=== PATIENT | female | born 1980 ===

== ENCOUNTER 2016-10-04 15:55 | Inpatient (IN) | payer OTHER ==
[~2016-10-04] VITALS: Ht 170.2 cm; Wt 72.6 kg
--- NOTE | 2016-10-04 16:07 | NUR ---
PER PT "PROBLEM WITH ALCOHOL" LAST DRINK 3 PM.ONLY DRANK A LITTLE THEN, TREMULOUS. DENIES DRUG USE. PER PT HAVE A PLACE TO GO BUT CANT GO INPAIRED. WHEN ASKED PT JUST CRIES AND STATES I DO NOT BELONG IN THIS WORLD.
--- NOTE | 2016-10-04 16:12 | NUR ---
PT VERY EMOTIONAL, FEARFUL PULLS AWAY WITH PROCEDURES, CRYING TREMULOUS,. CHARGE YUSEF AWARE.
[2016-10-04 16:38] LABS: ABSOLUTE BASOPHIL COUNT 0 /CUMM (0.0-0.2); ABSOLUTE EOSINOPHIL COUNT 0 /CUMM (0.0-0.7); ABSOLUTE GRANULOCYTE CT 3.4 /CUMM (1.4-6.5); ABSOLUTE LYMPH COUNT 0.8 /CUMM (1.2-3.4); ABSOLUTE MONOCYTE COUNT 0.1 /CUMM (0.10-0.60); BASOPHIL % 0.9 % (0.0-2.0); EOSINOPHIL % 0.8 % (0-5); HEMATOCRIT 44.5 % (37-47); MEAN CORPUSCULAR HGB 30.2 PG (27.0-31.0); MEAN CORPUSCULAR HGB CONC 34.2 G/DL (33.0-37.0); MEAN CORPUSCULAR VOLUME 88.2 FL (81.0-99.0); MEAN PLATELET VOLUME 9.9 FL (7.4-10.4); PLATELET COUNT 128 /CUMM (130-400); RBC DISTRIBUTION WIDTH 14.7 % (11.5-14.5); RED BLOOD CELL CT 5.04 /CUMM (4.20-5.40); WHITE BLOOD CELL COUNT 4.4 /CUMM (4.8-10.8)
--- NOTE | 2016-10-04 16:42 | NUR ---
LABS DRAWN AND SENT BY THIS [facility] BLUE, SST X2, LAV X 2, PINK, ARIAS
--- NOTE | 2016-10-04 16:58 | NUR ---
SECURITY IS TAKING A SMALL POCKET 2IN KNIFE AND A SMALL 2IN SCREW CATHETER FINISHER AND INSPECTOR TO LOCK UP.
--- NOTE | 2016-10-04 17:12 | ED PSYCHIATRIC COMPLAINT ---
History of Present Illness General Chief Complaint: ETOH/Drug Related Complaint Stated Complaint: PT NEEDS DETOX FROM ALCOHOL Source: patient Exam Limitations: no limitations Allergies Coded Allergies: No Known Allergies (10/04/16) Triage Note: PER PT "PROBLEM WITH ALCOHOL" LAST DRINK 3 PM.ONLY DRANK A LITTLE THEN, TREMULOUS. DENIES DRUG USE. PER PT HAVE A PLACE TO GO BUT CANT GO INPAIRED. WHEN ASKED PT JUST CRIES AND STATES I DO NOT BELONG IN THIS WORLD. Triage Nurses Notes Reviewed? yes : No Patient currently breastfeeds: No HPI: 36-year-old female here with complaints of alcohol withdrawal and depression. She has history of drinking for many years and polysubstance abuse. She has stopped drinking as of this afternoon and only drank a small amount today, usually drinks 2 pints of vodka per day. She has history of withdrawal symptoms but no withdrawal seizures or DTs however she states the last few time she tried to stop drinking her withdrawal symptoms became worse and worse. She has no nausea no vomiting, she complains of depression and anxiety although she is not suicidal at this time. She is anxious and shaking, there is no confusion. Last detox was approximately 6-8 months ago and she has been drinking heavily since, daily. (MICHAEL FLETCHER) Vital Signs & Intake/Output Vital Signs & Intake/Output Vital Signs Date Time Temp Pulse Resp B/P Pulse O2 O2 Flow FiO2 Ox Delivery Rate 10/04 1805 Room Air 10/04 1748 124 18 142/90 98 Room Air 10/04 1722 99.0 128 28 162/100 10/04 1608 99.0 130 28 162/100 96 Room Air Past History Travel History Traveled to [place] past 21 day No Medical History Any Pertinent Medical History? see below for history Neurological: NONE EENT: NONE Cardiovascular: NONE Respiratory: NONE Gastrointestinal: NONE Hepatic: NONE Renal: NONE Musculoskeletal: NONE Psychiatric: alcohol dependence, anxiety, depression, substance abuse, HISTORY OF SUICIDALITY Endocrine: NONE Surgical History Surgical History: none Psychosocial History What is your primary language Yoruba Tobacco Use: Current Daily Use Daily Tobacco Use Amount/Type: => 5 Cigarettes daily ETOH Use: alcoholic Family History Hx Contributory? No (MICHAEL FLETCHER) Review of Systems Review of Systems Constitutional: Reports: see HPI. EENTM: Reports: no symptoms. Respiratory: Reports: no symptoms. Cardiovascular: Reports: no symptoms. GI: Reports: no symptoms. Genitourinary: Reports: no symptoms. Musculoskeletal: Reports: no symptoms. Skin: Reports: no symptoms. Neurological/Psychological: Reports: see HPI. Hematologic/Endocrine: Reports: no symptoms. Immunologic/Allergic: Reports: no symptoms. All Other Systems: Reviewed and Negative (MICHAEL FLETCHER) Physical Exam Physical Exam General Appearance: well developed/nourished, anxious, moderate distress ( TREMULOUS) Neurological/Psychiatric: no motor/sensory deficits, awake, alert, anxious Comments: HEENT: Normal EENT exam, extraocular motion intact, no nystagmus. Pupils equally round and reactive to light. Nose is atraumatic. External auditory canal and Tympanic membranes clear. Pharynx normal. No swelling or edema. Neck: Supple, no lymphadenopathy, normal range of motion without pain or tenderness Back: Nontender, no CVA tenderness. Full range of motion Cardiovascular: Tachycardic with a regular rhythms no murmurs, normal JVP Respiratory: Chest nontender. No respiratory distress. Breath sounds clear to auscultation bilaterally Abdomen: Soft, nontender nondistended, no appreciable organomegaly. Normal bowel sounds. No ascites Extremity: No edema, no calf tenderness to palpation, normal and equal pulses. Neuro: Alert oriented x3, motor sensory normal, cranial nerves II through XII grossly intact. Skin: No appreciable rash on exposed skin, skin is warm and dry. Psych: Anxious, tremulous, memory and judgment is normal SAD PERSONS Done? patient not suicidal (MICHAEL FLETCHER) Progress Differential Diagnosis: dementia, drug intoxication, drug overdose, drug withdrawal, electrolyte abnormality, encephalitis, hypoglycemia, hypothyroidism, IC hem/mass/tumor, meningitis Initial ED EKG: SINUS TACHYCARDIA AT 150 BPM, NO SPECIFIC st OR t-WAVE CHANGES, POOR TRACING DUE TO ARTIFACT Rhythm Strip: sinus tachycardia Comments: Initial CIWA is 21. Treated with 2 mg of Ativan IV, 300 mg of gabapentin and 1 L of normal saline, we'll continue to monitor. Patient reevaluated multiple times, blood pressure and heart rate and symptomatology has improved significantly, will require admission due to possible withdrawal seizure impending DTs, patient requests admission for detox (MICHAEL FLETCHER) Plan of Care: Orders Procedure Date/time Status CIWA 10/04 1702 Active Telemetry/Seconds Inspector 10/04 1657 Active URINE DRUG SCREEN FOR ER ONLY 10/04 1637 Active URINALYSIS 10/04 1637 Active HUMAN BETA HCG SCREEN 10/04 161 Complete ETHANOL 10/04 161 Complete COMPREHENSIVE METABOLIC PANEL 10/04 161 Complete CBC WITHOUT DIFFERENTIAL 10/04 161 Complete EKG 10/04 161 Active Current Medications Sig/Aaron Start time Last Medication Dose Stop Time Status Admin Sodium Chloride 1,000 ML BOLUS ONE 10/04 1830 AC (Normal Saline 0.9%) 10/04 1929 Laboratory Tests 10/04/16 1618: Anion Gap 20 H, Estimated GFR > 60, BUN/Creatinine Ratio 11.4, Glucose 103 H, Calcium 9.5, Total Bilirubin 1.3, AST 934 H, ALT 428 H, Alkaline Phosphatase 185 H, Total Protein 8.4 H, Albumin 4.9, Globulin 3.5, Albumin/Globulin Ratio 1.4, Total Beta HCG NEGATIVE, CBC w Diff NO MAN DIFF REQ, RBC 5.04, MCV 88.2, MCH 30.2, RDW 14.7 H, MPV 9.9, Gran % 78.0 H, Lymphocytes % 18.0 L, Monocytes % 2.3, Eosinophils % 0.8, Basophils % 0.9, Absolute Granulocytes 3.4, Absolute Lymphocytes 0.8 L, Absolute Monocytes 0.1 L, Absolute Eosinophils 0, Absolute Basophils 0, PUBS MCHC 34.2, Serum Alcohol 135.0 Departure Departure Disposition: STILL A PATIENT Condition: Stable Clinical Impression Primary Impression: Alcohol withdrawal Qualifiers: Complication of substance-induced condition: uncomplicated Qualified Code: F10.230 - Alcohol dependence with withdrawal, uncomplicated Secondary Impressions: High anion gap metabolic acidosis, Transaminitis Departure Forms: Customer Survey General Discharge Information Admission Note Spoke With: CHRISTINE KIM MD Documentation of Exam: Documentation of any treatments & extenuating circumstances including Concerns Regarding Discharge (functional status, medication knowledge or non-compliance, living conditions, etc.) that warrant an admission rather than observation: Patient with significant signs of alcohol withdrawal, see what the 21, hypertensive tachycardic transaminitis, concern for alcohol withdrawal seizure or impending DTs. Requires admission, IV Ativan, IV Neurontin for withdrawal symptoms, IV fluids and elevated anion gap, possible psychiatric consultation (JENNIFER PARKER,) PA/WIRED SWEATBAND CUTTER Co-Sign Statement Statement: ED Attending supervision documentation- [] I saw and evaluated the patient. I have also reviewed all the pertinent lab results and diagnostic results. I agree with the findings and the plan of care as documented in the PA's/WIRED SWEATBAND CUTTER's documentation. [X] I have reviewed the ED Record and agree with the PA's/WIRED SWEATBAND CUTTER's documentation. [] Additions or exceptions (if any) to the PAs/WIRED SWEATBAND CUTTER's note and plan are summarized below: [] (JOSEP MOLINA,PHIL Andre)
[2016-10-04 17:22] VITALS: BP 162/100
--- NOTE | 2016-10-04 17:25 | NUR ---
PT BROUGHT TO ROOM 12. SECURITY IN TO WAND PT. PT CHANGED WITHOUT ASSIST INTO BLUE SCRUBS. IV PLACED. SEEN BY MICHAEL PARKER. PT VERY TREMULOUS AND ANXIOUS. PT SENSITIVE TO SOUNDS AND MOVEMENT IN ROOM, JUMPS AND WITHDRAWLS FROM UNEXPECTED SOUNDS OR TOUCH. AWAKE, ALERT AND STATES SHE IS ANXIOUS. PT ACTIVELY TALKING BUT CONVERSATION IS DISORGANIZED. PT HAVING DIFFICULTY ANSWERING QUESTIONS SUCCINCLTY OR SUFFICIENTLY. PT WITH HISTORY OF BIPOLAR AND STATES SHE STOPPED TAKING HER MEDS OVER A YEAR AGO BECAUSE SHE FEELS SHE IS MORE CREATIVE WHEN OFF HER MEDS. ADMITS TO ALCOHOL ABUSE AND STATES SHE HAS BEEN TO REHAB AND OR HOSPITALIZED FOR PSYCHIATRIC PROBLEMS MULTIPLE TIMES. STATES SHE HAS HALLUCINATIONS AT PRESENT.
--- NOTE | 2016-10-04 17:29 | NUR ---
PT MEDICATED WITH GABAPETIN AND ATIVAN IV.
--- NOTE | 2016-10-04 17:48 | NUR ---
PT RESTING QUIETLY. TREMORS GREATLY DIMINISHED. PT CONTINUES TO BE SENISTIVE TO UNEXPECTED NOISES, STARTLES EASILY
[2016-10-04 18:54] VITALS: BP 113/82
--- NOTE | 2016-10-04 18:55 | NUR ---
PT MUCH CALMER, NO LONGER CRYING, NOT STARTLING MUCH WHEN SHE ARRIVED. SPOKE WITH PT AND ASKED HER AGAIN WHY SHE CAME TO ED TODAY. UPON ARRIVAL PT WAS EMOTIONAL AND NOT EXPRESSING HERSELF WELL. PT VERBALIZED AGAIN THAT SHE CAME TO ED TO DETOX FROM ALCOHOL SO THAT SHE COULD BE MEDICALLY STABLE TO GO TO A REHAB CENTER.
--- NOTE | 2016-10-04 19:41 | NUR ---
ADMISION GIVEN TO PHILANTHROPY OFFICER PT IS A HOLD IN THE ED
--- NOTE | 2016-10-04 20:07 | NUR ---
DR KIM IN TO SEE PT. ADDITIONAL ATIVAN ORDERED FOR PT.
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
[2016-10-04 20:33] VITALS: BP 123/81
--- NOTE | 2016-10-04 20:33 | NUR ---
PT ASSISTED UP TO BATHROOM TO PROVIDE URINE SPECIMEN THEN GIVEN IV ATIVAN
--- NOTE | 2016-10-04 20:40 | NUR ---
DR REYES ORDERED MONITORING OF PT DUE TO RESTLESSNESS AND HALLUCINATIONS. MACHELLE MST IN TO SIT WITH PT
--- NOTE | 2016-10-04 21:10 | Admission Certification ---
Admission Certification Certification Statement - As attending physician, I certify that at the time of - admission, based on clinical presentation, severity of - symptoms, need for further diagnostic testing and - therapeutic interventions, and risk of adverse outcomes - without in-hospital treatment, in my clinical assessment, - this patient requires an acute hospital stay for a minimum - of two nights or longer. I have also considered psychsocial - factors such as support system, advanced age, financial - issues, cognitive issues, and failed out-patient treatments, - past re-admission history, safety of patient, and lack of - compliance as applicable. Specific rationale supporting this admission is: Alcohol withdrawal.
--- NOTE | 2016-10-04 21:25 | NUR ---
HOUSE STAFF IN WITH PT
--- NOTE | 2016-10-04 21:50 | NUR ---
PT WILL GO TO ROOM 204-2
--- NOTE | 2016-10-04 22:21 | NUR ---
IV CLOTTED OFF IN RIGHT HAND. IV REMOVED. NEW LINE PLACED IN LEFT HAND. BANANA BAG HUNG. SITTER AT BEDSIDE. PT AWAKE, ALERT, MINIMAL TREMORS. PARTICIPATING N DIVERSIONAL CONVERSATION. PT APPRECIATIVE OF CARE. REPORT CALLED TO TRUE ON SECOND FLOOR
[2016-10-04 22:22] VITALS: BP 130/90
--- NOTE | 2016-10-04 22:27 | NUR ---
TRANSPORT HERE FOR PT
--- NOTE | 2016-10-04 22:32 | NUR ---
VALUABLES BAG AND CLOTHING BAG AND BACKPACK RETURNED TO PT PRIOR TO TRANSFER TO SECOND FLOOR. PT VERIFIED ALL VALUABLES RETURNED TO HER INCLUIDNG ID, FOUR DOLLARS AND KEYS
--- NOTE | 2016-10-04 22:32 | NUR ---
PT TRANSPORTED TO FLOOR
[2016-10-04 22:47] VITALS: BP 142/80
--- NOTE | 2016-10-05 00:12 | NUR ---
PT ARRIVED TO FLOOR FROM ER VIA STRETCHER WITH DISTRIBUTION STAFF. PT ANXIOUS AND TREMULOUS. PT REPORTS EPISODES OF AH(HEARS PEOPLE CLIMBING STAIRS) AND VH(SEES DOGS), NOT AT THIS TIME. BANANA BAG IN PLACE, SITTER AT BEDSIDE, ATIVAN PO SCHEDULE DOSE GIVEN. WILL CONTINUE TO MONITOR
[2016-10-05 00:39] VITALS: BP 138/94
--- NOTE | 2016-10-05 06:46 | PN- Housestaff ---
GODFREY MOLINA,TRACY 10/05/16 0646: Subjective Follow-up For: Alcohol detox Complaints: anxiety Subjective: I followed up on this patient who got admitted overnight for alcohol detox. She is resting comfortably on the bed, and does not have any complaints. On questioning, she did say that she has anxiety, is still hallucinating (auditory and visual) sometimes, and has tremors. No suicidal or homicidal ideation at this time. Vitals stable. Review of Systems Constitutional: Reports: no symptoms. EENTM: Reports: no symptoms. Cardiovascular: Reports: no symptoms. Respiratory: Reports: no symptoms. Gastrointestinal: Reports: no symptoms. Genitourinary: Reports: no symptoms. Musculoskeletal: Reports: no symptoms. Skin: Reports: no symptoms. Neurological/Psychological: Reports: anxiety, tremors. Denies: headache. Hematologic/Endocrine: Reports: no symptoms. Objective Last 24 Hrs of Vital Signs/I&O Vital Signs Date Time Temp Pulse Resp B/P Pulse O2 O2 Flow FiO2 Ox Delivery Rate 10/05 1618 98.1 106 20 136/88 97 10/05 1200 98.0 92 20 126/67 10/05 0813 98.2 100 18 124/84 97 Room Air 10/05 0039 98.6 105 22 138/94 96 Room Air 10/04 2247 98.3 115 20 142/80 98 Room Air 10/04 2223 98.5 122 18 130/90 96 Room Air 10/04 2222 98.5 122 18 130/90 10/04 2033 98.8 120 18 123/81 10/04 1854 98.5 116 18 113/82 10/04 1854 98.5 116 18 113/82 98 Room Air 10/04 1805 Room Air 10/04 1748 124 18 142/90 98 Room Air 10/04 1722 99.0 128 28 162/100 Intake & Output 10/05 1600 10/05 0800 10/05 0000 Intake Total 1600 1000 2000 Output Total Balance 1600 1000 2000 Intake, IV 800 1000 2000 Intake, Oral 800 Patient 72.575 kg Weight Physical Exam General Appearance: Alert, Oriented X3, Cooperative, No Acute Distress, Anxious Other Physical Findings: Physical examnination: General: well nourished patient [not] in distress Head: Normocephalic, atraumatic Eyes: Pupils normal in size, regular, reacting to light and accommodation, EOM normal Ears: B/l normal on inspection Nose: Normal on inspection Throat/mouth: [Moist] mucosa Neck: Supple, full range of motion, no thyromegaly Heart: Regular rate, [regular] rhythm Lung: Normal breath sound bilaterally [Added sound not heard] Abd: Soft, non-tender, no distention appreciated Back: Normal range of motion Extremities: Normal knee exam bilaterally, [no] pedal edema, Distal neurovascular intact Neurologic: Alert, oriented x3, Cranial exam grossly intact, Speech is clear and coherent Skin: Warm and dry Psychiatric: Calm, cooperative, coherant, [no SI], [no HI] Current Medications: Current Medications Sig/Aaron Start time Last Medication Dose Route Stop Time Status Admin Cyanocobalamin/ 1 BAG ONCE ONE 10/04 2358 CAN Thiamine/Pyridoxine IV 10/05 0758 Dextrose/Water 1,000 ML Cyanocobalamin/ 1 BAG ONCE ONE 10/04 2014 DC 10/04 Thiamine/Pyridoxine IV 10/05 0414 2147 Sodium Chloride 1,000 ML Enoxaparin Sodium 0 .STK-MED ONE 10/049 DC SC Enoxaparin Sodium 40 MG DAILY 10/04 2109 DC 10/04 SC 2147 Folic Acid 1 MG DAILY 10/05 1000 AC 10/05 PO 0741 Gabapentin 0 .STK-MED ONE 10/04 171 DC PO Ibuprofen 600 MG Q6P PRN 10/04 211 AC PO Lorazepam 2 MG Q6 10/05 1200 DC PO Lorazepam 2 MG Q6 10/05 0700 AC 10/05 PO 1151 Lorazepam 2 MG Q6 10/04 2359 DC 10/04 PO 10/05 0001 2348 Lorazepam 0 Q1P PRN 10/04 2245 AC 10/05 IV 0640 Lorazepam 2 MG Q2P PRN 10/04 211 DC IV Lorazepam 1 MG Q2P PRN 10/04 211 DC IV Lorazepam 1 MG ONCE ONE 10/04 2014 DC 10/04 IV 10/04 2015 2020 Lorazepam 0 .STK-MED ONE 10/04 2009 DC .ROUTE Lorazepam 0 .STK-MED ONE 10/04 1711 DC .ROUTE Magnesium Chloride 64 MG DAILY 10/05 1000 DC 10/05 PO 10/05 1001 0741 Magnesium Oxide 400 MG BID 10/05 1532 DC PO Magnesium Sulfate 1 GM ONCE ONE 10/05 1600 AC Dextrose/Water 100 ML IV 10/05 1959 Multivitamins 1 TAB DAILY 10/04 2200 AC 10/05 PO 0741 Multivitamins 0 .STK-MED ONE 10/04 2130 DC PO Nicotine 7 MG DAILY PRN 10/05 0500 AC TOP Oxycodone HCl 10 MG Q6P PRN 10/04 2115 AC PO Patient Medication 1 ED ONE ONE 10/05 1330 DC Teaching ED 10/05 1331 Potassium Chloride 40 MEQ ONCE ONE 10/05 1545 DC PO 10/05 1546 Potassium Chloride 40 MEQ ONCE ONE 10/05 0100 DC 10/05 PO 10/05 0101 0235 Sodium Chloride 1,000 ML Q10H 10/04 2230 AC 10/05 IV 1543 Sodium Chloride 1,000 ML BOLUS ONE 10/04 1830 DC 10/04 IV 10/04 1929 1850 Sodium Chloride 1,000 ML BOLUS ONE 10/04 1700 DC 10/04 IV 10/04 1759 1722 Thiamine HCl 100 MG DAILY 10/05 1000 AC 10/05 PO 0741 Last 24 Hrs of Lab/Wild Results Last 24 Hrs of Labs/Mics: Laboratory Tests 10/05/16 0625: Anion Gap 13, Estimated GFR > 60, BUN/Creatinine Ratio 10.0, Phosphorus 3.1, Magnesium 1.4 L, Total Bilirubin 1.8 H, Direct Bilirubin 0.9 H, AST 669 H, ALT 298 H, Alkaline Phosphatase 130 H, Total Protein 6.4, Albumin 3.5, PT 11.0 , INR 1.05, CBC w Diff NO MAN DIFF REQ, RBC 4.18 L, MCV 89.1, MCH 30.8, RDW 15.2 H, MPV 10.6 H, Gran % 58.7, Lymphocytes % 34.6, Monocytes % 3.1, Eosinophils % 3.1, Basophils % 0.5, Absolute Granulocytes 1.7, Absolute Lymphocytes 1.0 L, Absolute Monocytes 0.1 L, Absolute Eosinophils 0.1, Absolute Basophils 0, PUBS MCHC 34.6, Hepatitis A IgM Ab NONREACTIVE, Hep Bs Antigen NONREACTIVE, Hep B Core IgM Ab Conf NONREACTIVE, Hepatitis C Antibody NONREACTIVE 10/04/16 2015: Urine Opiates Screen < 100.00, Methadone Screen < 40, Barbiturate Screen < 60, Ur Phencyclidine Scrn < 6.00, Amphetamines Screen 1366 H, U Benzodiazepines Scrn < 85, Urine Cocaine Screen < 50, Urine Cannabis Screen < 5.00, Urine Color YEL, Urine Clarity CLEAR, Urine pH 7.0, Ur Specific Sanders 1.020, Urine Protein 30 H, Urine Ketones 15 H, Urine Nitrite NEG, Urine Bilirubin NEG@ICTO, Urine Urobilinogen 2.0 H, Ur Leukocyte Esterase NEG, Ur Microscopic SEDIMENT EXAMINED , Urine RBC FEW H, Urine WBC RARE, Ur Epithelial Cells MANY H, Urine Mucus MANY H, Urine Hemoglobin TRACE-INTACT, Urine Glucose NEG Orders CIWA Score (last 24 hrs): 0-21 since admission Assessment/Plan Assessment: 36 yo F with pmh of alcohol abuse, alcohol withdrawal seizures, polysubstance abuse including marijuana, crack cocaine, cocaine, opiates, heroin, IVDA, anxiety, depression, suicidal ideation, presented to the ED requesting alcohol detoxification. She is currently being managed in the general medical floor for the following issues: #Alcohol detox Her CIWA score has been ranging from 0-21 since admission. The latest being 0. Patient does show some signs of alcohol withdrawal, including tremors, anxiety, hallucination. -Continue CIWA protocol -Taper Ativan according to protocol -Continue banana bag and multivitamin, folate, thiamine -Since the patient is hallucinating, continue patient safety monitor -Follow-up social work consult -Since the patient is not suicidal currently, does not require a psychiatric consult #Likely alcoholic hepatitis Liver enzymes are increased, ultrasound of the abdomen has shown fatty liver, and the patient had mild right upper quadrant pain on presentation. All these points to diagnosis of hepatitis, likely due to alcohol. Viral hepatitis panel is negative. -Tylenol level normal, U Tox positive for amphetamine, as expected -Monitor LFTs -Follow-up INR #Thrombocytopenia Patient's platelet is 128 at admission and 81 in the morning. Likely due to liver disease or some other reasons. Enoxaparin has been stopped, and also advised not to give any heparin products either. DVT prophylaxis is currently being done by Alps. -Monitor Platelets, and signs of any bleeding #Loose stools, now improved #Diet: Regular diet #DVT prophylaxis: Alps #CODE STATUS: Full code Problem List: 1. Alcohol withdrawal 2. Transaminitis 3. Thrombocytopenia Pain Ratin Pain Location: - Pain Goal: Remain pain free Pain Plan: prn Tomorrow's Labs & Rationales: CBC to follow platelets, patient has thrombus cytopenia BEP and magnesium level, as the patient has hypomagnesemia and hypokalemia MURALI GARCIA MD 10/05/16 1220: Attending MD Review Statement Attending Statement Attending MD Statement: examined this patient, discuss w/resident/PA/STATE PILOT, agreed w/resident/PA/STATE PILOT, reviewed EMR data (avail) Attending Assessment/Plan: CIWA scores remain stable. Patient is sleepy and comfortable and does not appear agitated. Will continue Ativan 2mg q6h PO, taper tomorrow to 1.5mg q6h with PRN Ativan and vitamin supplementation.
--- NOTE | 2016-10-05 06:59 | NUR ---
PT + , CIWA 19, PT MEDICATED PER CIWA PROTOCOL. MADE AWARE.
[2016-10-05 07:54] LABS: ABSOLUTE BASOPHIL COUNT 0 /CUMM (0.0-0.2); ABSOLUTE EOSINOPHIL COUNT 0.1 /CUMM (0.0-0.7); ABSOLUTE GRANULOCYTE CT 1.7 /CUMM (1.4-6.5); ABSOLUTE MONOCYTE COUNT 0.1 /CUMM (0.10-0.60); BASOPHIL % 0.5 % (0.0-2.0); EOSINOPHIL % 3.1 % (0-5); GRANULOCYTE % 58.7 % (42.2-75.2); MEAN CORPUSCULAR HGB 30.8 PG (27.0-31.0); MEAN CORPUSCULAR HGB CONC 34.6 G/DL (33.0-37.0); MEAN CORPUSCULAR VOLUME 89.1 FL (81.0-99.0); MEAN PLATELET VOLUME 10.6 FL (7.4-10.4); RBC DISTRIBUTION WIDTH 15.2 % (11.5-14.5); RED BLOOD CELL CT 4.18 /CUMM (4.20-5.40); WHITE BLOOD CELL COUNT 2.9 /CUMM (4.8-10.8)
[2016-10-05 08:13] VITALS: BP 124/84
[2016-10-05 08:47] LABS: HEMATOCRIT 37.3 % (37-47)
[2016-10-05 09:11] LABS: PLATELET COUNT 81 /CUMM (130-400)
--- NOTE | 2016-10-05 09:46 | NUR ---
NURSING NOTE: ABDOMINAL US DONE AT BEDSIDE PER MD ORDER.
--- NOTE | 2016-10-05 10:05 | ULTRASOUND REPORT ---
EXAMINATION: US ABDOMEN LIMITED CLINICAL INFORMATION: Abdominal pain. Transaminitis.. COMPARISON: None TECHNIQUE: Real-time imaging of the right upper quadrant abdominal viscera. FINDINGS: PANCREAS: The tail is obscured by right bowel gas. Is less portions are unremarkable. LIVER: The liver is mildly enlarged. There is diffusely increased echogenicity of the liver consistent with hepatic steatosis. No focal parenchymal lesion is demonstrated. There is no intrahepatic ductal dilatation. GALLBLADDER: Normal. The gallbladder is physiologically distended without evidence of stones, sludge, polyps, wall thickening or pericholecystic fluid. COMMON BILE DUCT: Normal in caliber measuring 0.4 cm in diameter. RIGHT KIDNEY: Normal. No hydronephrosis. No renal calculi or focal parenchymal lesions. The kidney measures 11.2 cm in maximum dimension. FREE FLUID: None. IMPRESSION: Mild hepatomegaly with diffusely increased echogenicity consistent with hepatic steatosis.
[2016-10-05 12:00] VITALS: BP 126/67
--- NOTE | 2016-10-05 15:06 | NUR ---
REferral received this am via electronic order desk clerk. This patient is a 36 year old female, admitted to the hospital yesterday for a voluntary detox. PAtient placed on the CIWA for observation, and has been both tremulous and has had some disorientation. She is on an ativan taper and has received 12mg in 24 hours. Addie has had had significant periods of sobriety along with relapses for many years. She reports being well connected in the recovery community in [place], and reports that she will have a bed at [facility] on 10/08/16. Call to [facility] confirms same. Case discussed with Dr. Boswell; ativan needs to be tapered. Will follow.
[2016-10-05 16:18] VITALS: BP 136/88
[2016-10-06] VITALS: BP 122/84
[2016-10-06 00:28] VITALS: BP 122/84
[2016-10-06 07:59] LABS: ABSOLUTE BASOPHIL COUNT 0 /CUMM (0.0-0.2); ABSOLUTE EOSINOPHIL COUNT 0.1 /CUMM (0.0-0.7); ABSOLUTE GRANULOCYTE CT 1.6 /CUMM (1.4-6.5); ABSOLUTE LYMPH COUNT 1.3 /CUMM (1.2-3.4); ABSOLUTE MONOCYTE COUNT 0.1 /CUMM (0.10-0.60); BASOPHIL % 0.8 % (0.0-2.0); EOSINOPHIL % 4.5 % (0-5); GRANULOCYTE % 49.6 % (42.2-75.2); HEMATOCRIT 39.1 % (37-47); MEAN CORPUSCULAR HGB 30.6 PG (27.0-31.0); MEAN CORPUSCULAR HGB CONC 34.2 G/DL (33.0-37.0); MEAN CORPUSCULAR VOLUME 89.5 FL (81.0-99.0); MEAN PLATELET VOLUME 11.9 FL (7.4-10.4); RBC DISTRIBUTION WIDTH 14.7 % (11.5-14.5); RED BLOOD CELL CT 4.37 /CUMM (4.20-5.40); WHITE BLOOD CELL COUNT 3.2 /CUMM (4.8-10.8)
[2016-10-06 08:32] VITALS: BP 130/81
[2016-10-06 09:07] LABS: PLATELET COUNT 80 /CUMM (130-400)
--- NOTE | 2016-10-06 09:59 | PN- Housestaff ---
MONSERIANNARAD SÁNCHEZ 10/06/16 0959: Subjective Follow-up For: Alcohol detox Subjective: seen and examined patient. feels wells. States she feels drowsy. Review of Systems Constitutional: Denies: chills, diaphoresis, fever, malaise, weakness, unexplained weight loss. Cardiovascular: Denies: chest pain, edema, orthopena, palpitations, peripheral edema, syncope. Respiratory: Denies: cough, hemoptysis, orthopnea, short of breath, sputum production, stridor, wheezing. Objective Last 24 Hrs of Vital Signs/I&O Vital Signs Date Time Temp Pulse Resp B/P Pulse O2 O2 Flow FiO2 Ox Delivery Rate 10/06 0832 98.5 89 20 130/81 98 Room Air 10/06 0028 98.1 96 20 122/84 95 10/06 0000 98.1 96 20 122/84 10/05 1618 98.1 106 20 136/88 97 10/05 1200 98.0 92 20 126/67 Intake & Output 10/06 1600 10/06 0800 10/06 0000 Intake Total 1100 1100 Output Total Balance 1100 1100 Intake, IV 1000 500 Intake, Oral 100 600 Physical Exam General Appearance: Alert, Oriented X3, Cooperative, No Acute Distress Cardiovascular: Regular Rate, Normal S1, Normal S2 Abdomen: Normal Bowel Sounds, Soft, No Tenderness Current Medications: Current Medications Sig/Aaron Start time Last Medication Dose Route Stop Time Status Admin Folic Acid 1 MG DAILY 10/05 1000 AC 10/06 PO 0915 Ibuprofen 600 MG Q6P PRN 10/04 2115 AC PO Lorazepam 1.5 MG Q6 10/06 1200 AC PO Lorazepam 2 MG Q6 10/05 0700 DC 10/06 PO 0550 Lorazepam 0 Q1P PRN 10/04 2245 AC 10/05 IV 0640 Magnesium Oxide 400 MG BID 10/05 1532 DC PO Magnesium Sulfate 1 GM ONCE ONE 10/05 1600 DC 10/05 Dextrose/Water 100 ML IV 10/05 1959 1715 Multivitamins 1 TAB DAILY 10/04 2200 AC 10/06 PO 0915 Nicotine 7 MG DAILY PRN 10/05 0500 TOP Oxycodone HCl 10 MG Q6P PRN 10/04 2115 PO Patient Medication 1 ED ONE ONE 10/05 1330 DC Teaching ED 10/05 1331 Potassium Chloride 40 MEQ ONCE ONE 10/05 1545 DC 10/05 PO 10/05 1546 1715 Sodium Chloride 1,000 ML Q10H 10/04 2230 DC 10/06 IV 0550 Thiamine HCl 100 MG DAILY 10/05 1000 AC 10/06 PO 0915 Last 24 Hrs of Lab/Wild Results Last 24 Hrs of Labs/Mics: Laboratory Tests 10/06/16 0617: Anion Gap 12, Estimated GFR > 60, BUN/Creatinine Ratio 8.3, Magnesium 2.0, CBC w Diff NO MAN DIFF REQ, RBC 4.37, MCV 89.5, MCH 30.6, RDW 14.7 H, MPV 11.9 H, Gran % 49.6, Lymphocytes % 40.5, Monocytes % 4.6, Eosinophils % 4.5, Basophils % 0.8, Absolute Granulocytes 1.6, Absolute Lymphocytes 1.3, Absolute Monocytes 0.1 L, Absolute Eosinophils 0.1, Absolute Basophils 0, PUBS MCHC 34.2 Assessment/Plan Assessment: 36 yo F with pmh of alcohol abuse, alcohol withdrawal seizures, polysubstance abuse including marijuana, crack cocaine, cocaine, opiates, heroin, IVDA, anxiety, depression, suicidal ideation, presented to the ED requesting alcohol detoxification. She is currently being managed in the general medical floor for the following issues: Plan: #Alcohol detox CIWA scores 4,4,4 Patient does show some signs of alcohol withdrawal, including tremors, anxiety, hallucination. -Continue CIWA protocol - Ativan decreased to 1.5 q6 -Continue banana bag and multivitamin, folate, thiamine -continue patient safety monitor -Follow-up social work consult #Transaminitis Likely alcoholic hepatitis, trending ultrasound of the abdomen has shown fatty liver. Viral hepatitis panel is negative. -Tylenol level normal, U Tox positive for amphetamine. -will continue to Monitor LFTs #Thrombocytopenia plt 80 today in the morning. Likely due to liver disease or some other reasons. Enoxaparin has been stopped, Monitor Platelets #Diet: Regular diet #DVT prophylaxis: Alps #CODE STATUS: Full code Problem List: 1. Alcohol withdrawal 2. Transaminitis 3. Thrombocytopenia Pain Ratin Pain Location: na Pain Goal: Pain 4 or less Pain Plan: current regimen Tomorrow's Labs & Rationales: low pt=cbc, transamintis=bep/lft MURALI GARCIA MD 10/06/16 1436: Attending MD Review Statement Attending Statement Attending MD Statement: examined this patient, discuss w/resident/PA/LINUX VMWARE ADMINISTRATOR, agreed w/resident/PA/LINUX VMWARE ADMINISTRATOR, reviewed EMR data (avail) Attending Assessment/Plan: CIWA scores remain stable. Patient is sleepy and comfortable and does not appear agitated. Will continue Ativan 1.5mg q6h, tomorrow 1mg q8h with PRN Ativan and vitamin supplementation
[2016-10-06 15:50] VITALS: BP 122/90
[2016-10-07 00:01] VITALS: BP 120/92
[2016-10-07 08:22] LABS: ABSOLUTE BASOPHIL COUNT 0 /CUMM (0.0-0.2); ABSOLUTE EOSINOPHIL COUNT 0.2 /CUMM (0.0-0.7); ABSOLUTE GRANULOCYTE CT 1.7 /CUMM (1.4-6.5); ABSOLUTE LYMPH COUNT 1.3 /CUMM (1.2-3.4); ABSOLUTE MONOCYTE COUNT 0.2 /CUMM (0.10-0.60); GRANULOCYTE % 48.7 % (42.2-75.2); MEAN CORPUSCULAR HGB 30.6 PG (27.0-31.0); MEAN CORPUSCULAR VOLUME 90.2 FL (81.0-99.0); MEAN PLATELET VOLUME 11.4 FL (7.4-10.4); RBC DISTRIBUTION WIDTH 15.1 % (11.5-14.5); RED BLOOD CELL CT 4.44 /CUMM (4.20-5.40); WHITE BLOOD CELL COUNT 3.6 /CUMM (4.8-10.8)
[2016-10-07 08:30] VITALS: BP 103/80
--- NOTE | 2016-10-07 09:17 | PN- Housestaff ---
DUSTY MOLINA,KAYCE 10/07/16 0917: Subjective Follow-up For: Alcohol detox Subjective: Patient appears stable today. No overnight events noted. She is resting comfortably in bed with no complaints. She follows up with therapist and primary care physician. Suggested if she requires follow-up to see a psychiatrist. Patient reported that she doesn't need any at this time. Denied suicidal or homicidal ideations. Review of Systems Constitutional: Reports: see HPI. Objective Last 24 Hrs of Vital Signs/I&O Vital Signs Date Time Temp Pulse Resp B/P Pulse O2 O2 Flow FiO2 Ox Delivery Rate 10/07 829 98.5 75 20 103/80 97 Room Air 10/07 0001 98.2 86 20 120/92 96 10/06 1550 98.0 84 18 122/90 97 Intake & Output 10/07 1600 10/07 0800 10/07 0000 Intake Total 360 360 360 Output Total Balance 360 360 360 Intake, IV 10 Intake, Oral 350 360 360 Physical Exam General Appearance: Alert, Oriented X3, Cooperative, No Acute Distress Skin: No Rashes Cardiovascular: Regular Rate, Normal S1, Normal S2, No Murmurs Lungs: Clear to Auscultation Abdomen: Normal Bowel Sounds, Soft, No Tenderness Neurological: Normal Speech Extremities: No Clubbing, No Cyanosis, No Edema Current Medications: Current Medications Sig/Aaron Start time Last Medication Dose Route Stop Time Status Admin Folic Acid 1 MG DAILY 10/05 1000 AC 10/07 PO 1015 Ibuprofen 600 MG Q6P PRN 10/04 2114 AC PO Lorazepam 1 MG BID 10/07 2199 AC PO Lorazepam 1.5 MG Q6 10/06 1200 DC 10/07 PO 0542 Lorazepam 0 Q1P PRN 10/04 2245 AC 10/05 IV 0640 Multivitamins 1 TAB DAILY 10/04 2199 AC 10/07 PO 1015 Nicotine 7 MG DAILY PRN 10/05 0500 AC TOP Oxycodone HCl 10 MG Q6P PRN 10/04 211 AC PO Thiamine HCl 100 MG DAILY 10/05 1000 AC 10/07 PO 1016 Last 24 Hrs of Lab/Wild Results Last 24 Hrs of Labs/Mics: Laboratory Tests 10/07/16 0630: Anion Gap 15, Estimated GFR > 60, BUN/Creatinine Ratio 5.0 L, Total Bilirubin 2.3 H, Direct Bilirubin 2.0 H, AST 331 H, ALT 270 H, Alkaline Phosphatase 152 H, Total Protein 6.3, Albumin 3.5, CBC w Diff NO MAN DIFF REQ, RBC 4.44, MCV 90.2, MCH 30.6, RDW 15.1 H, MPV 11.4 H, Gran % 48.7, Lymphocytes % 38.0, Monocytes % 6.3, Eosinophils % 6.0 H, Basophils % 1.0, Absolute Granulocytes 1.7, Absolute Lymphocytes 1.3, Absolute Monocytes 0.2, Absolute Eosinophils 0.2, Absolute Basophils 0, PUBS MCHC 34.0 Assessment/Plan Assessment: 36 yo F with pmh of alcohol abuse, alcohol withdrawal seizures, polysubstance abuse including marijuana, crack cocaine, cocaine, opiates, heroin, IVDA, anxiety, depression, suicidal ideation, presented to the ED requesting alcohol detoxification. She is currently being managed in the general medical floor for the following issues: Plan: #Alcohol detox CIWA scores within normal range Patient does show some signs of alcohol withdrawal, including tremors, anxiety, hallucination. -Continue CIWA protocol - Ativan decreased 1 mg every 12 -Continue banana bag and multivitamin, folate, thiamine -continue patient safety monitor -Follow-up social work consult #Transaminitis Likely alcoholic hepatitis, trending ultrasound of the abdomen has shown fatty liver. Viral hepatitis panel is negative. -Tylenol level normal, U Tox positive for amphetamine. -Total bilirubin has increased from yesterday. We'll continue to monitor. Patient remains a symptomatic. #Thrombocytopenia plt 86 today in the morning. Likely due to liver disease or some other reasons. Not on antiplatelets, no evidence of active bleeding Monitor Platelets #Diet: Regular diet #DVT prophylaxis: Alps #CODE STATUS: Full code Problem List: 1. Alcohol withdrawal 2. Transaminitis 3. Thrombocytopenia Pain Ratin Pain Location: Extremities Pain Goal: Remain pain free Pain Plan: As mentioned Tomorrow's Labs & Rationales: Will need to monitor LFTs MURALI GARCIA MD 10/07/16 8651: Attending MD Review Statement Attending Statement Attending Statement: examined this patient, discuss w/resident/PA/SENIOR SUPPORT ENGINEER, agreed w/resident/PA/SENIOR SUPPORT ENGINEER, reviewed EMR data (avail) Attending Assessment/Plan: CIWA scores remain stable. Patient is sleepy and comfortable and does not appear agitated. Will continue Ativan taper
[2016-10-07 09:42] LABS: PLATELET COUNT 86 /CUMM (130-400)
[2016-10-07 15:47] VITALS: BP 100/76
[2016-10-07 16:00] VITALS: BP 100/76
[2016-10-07 18:00] VITALS: BP 100/70
[2016-10-07 23:59] VITALS: BP 124/86
--- NOTE | 2016-10-08 06:07 | PN- Housestaff ---
Subjective Follow-up For: Alcohol detox Complaints: no complaints Subjective: I followed up and examined the patient today. See is resting comfortably in her bed, is not in any acute distress, and does not have any complaints. She admits to feeling better than ever, and denies any nausea, tremors, anxiety, palpitations, "shakiness". She mentioned that she is planning to be discharged to a short-term rehabilitation facility with an IOP program. CIWA in 24 hrs 0-3 max. Toatl Ativan required: 1mg Currently on: 1mg BID No PRN Ativan needed in past 24 hrs. Review of Systems Constitutional: Reports: no symptoms. EENTM: Reports: no symptoms. Cardiovascular: Reports: no symptoms. Respiratory: Reports: no symptoms. Gastrointestinal: Reports: no symptoms. Genitourinary: Reports: no symptoms. Musculoskeletal: Reports: no symptoms. Skin: Reports: no symptoms. Neurological/Psychological: Reports: no symptoms. Hematologic/Endocrine: Reports: no symptoms. Objective Last 24 Hrs of Vital Signs/I&O Vital Signs Date Time Temp Pulse Resp B/P Pulse O2 O2 Flow FiO2 Ox Delivery Rate 10/07 2359 98.1 75 18 124/86 97 Room Air 10/07 1800 98.8 90 20 100/70 10/07 1600 98.9 96 18 100/76 10/07 1547 98.9 96 18 100/76 96 10/07 0830 98.5 75 20 103/80 97 Room Air Intake & Output 10/08 0800 10/08 0000 10/07 1600 Intake Total 600 360 Output Total Balance 600 360 Intake, IV 10 Intake, Oral 600 350 Physical Exam General Appearance: Alert, Oriented X3, Cooperative, No Acute Distress Other Physical Findings: Physical examnination: General: well nourished patient not in distress Head: Normocephalic, atraumatic Eyes: Pupils normal in size, regular, reacting to light and accommodation, EOM normal Ears: B/l normal on inspection Nose: Normal on inspection Throat/mouth: Moist mucosa Neck: Supple, full range of motion, no thyromegaly Heart: Regular rate, regular rhythm Lung: Normal breath sound bilaterally Added sound not heard Abd: Soft, non-tender, no distention appreciated Back: Normal range of motion Extremities: Normal knee exam bilaterally, no pedal edema, Distal neurovascular intact Neurologic: Alert, oriented x3, Cranial exam grossly intact, Speech is clear and coherent Skin: Warm and dry Psychiatric: Calm, cooperative, coherant, no anxiety, no SI Current Medications: Current Medications Sig/Aaron Start time Last Medication Dose Route Stop Time Status Admin Calcium Carbonate 500 MG ONCE ONE 10/08 0400 DC 10/08 PO 10/08 0401 0426 Folic Acid 1 MG DAILY 10/05 1000 AC 10/08 PO 0859 Ibuprofen 600 MG Q6P PRN 10/04 2115 AC PO Lorazepam 1 MG DAILY 10/08 1000 AC 10/08 PO 0859 Lorazepam 1 MG BID 10/07 2199 DC 10/07 PO 2143 Lorazepam 1.5 MG Q6 10/06 1200 DC 10/07 PO 0542 Lorazepam 0 Q1P PRN 10/04 2245 AC 10/05 IV 0640 Multivitamins 1 TAB DAILY 10/04 2199 AC 10/08 PO 0859 Nicotine 7 MG DAILY PRN 10/05 0500 AC TOP Oxycodone HCl 10 MG Q6P PRN 10/04 2115 AC PO Thiamine HCl 100 MG DAILY 10/05 1000 AC 10/08 PO 0859 Last 24 Hrs of Lab/Wild Results Last 24 Hrs of Labs/Mics: Laboratory Tests 10/08/16 0637: Total Bilirubin 1.6 H, Direct Bilirubin 1.1 H, AST 178 H, ALT 202 H, Alkaline Phosphatase 134 H, Total Protein 6.4, Albumin 3.5 Assessment/Plan Assessment: 36 yo F with pmh of alcohol abuse, alcohol withdrawal seizures, polysubstance abuse including marijuana, crack cocaine, cocaine, opiates, heroin, IVDA, anxiety, depression, suicidal ideation, presented to the ED requesting alcohol detoxification. She is currently being managed in the general medical floor for the following issues: Plan: #Alcohol detox, not in withdrawal anymore CIWA scores within normal range Patient does show some signs of alcohol withdrawal, including tremors, anxiety, hallucination. -Continue CIWA protocol, last 24hr CIWA scaore: 0-3; required total Ativan 1mg in past 24 hrs, no PRN Ativan required -Ativan decreased 1 mg every 24 hrs -Continue banana bag and multivitamin, folate, thiamine -continue patient safety monitor -Follow-up social work consult. UPDATE: She has a placement at short-term rehabilitation facility, with follow-up appointment at the IOP set up already. She is not in withdrawal anymore, CIWA score is 0, and can be safely discharged to a short-term rehabilitation facility with a plan for follow-up which she agrees. #Transaminitis, improving Likely alcoholic hepatitis, trending, bilirubin and liver enzymes decreased slightly from yesterday. But it needs further follow-up even if the patient is discharged today. Patient has been explained about the condition and agrees to plan to follow-up. ultrasound of the abdomen has shown fatty liver. Viral hepatitis panel is negative. -Tylenol level normal, U Tox positive for amphetamine. -Total bilirubin has increased from yesterday. We'll continue to monitor. Patient remains a symptomatic. #Thrombocytopenia plt 86 today in the morning. Likely due to liver disease or some other reasons. Not on antiplatelets, no evidence of active bleeding PCP needs to follow-up with the reason of thrombocytopenia. The patient has been explained about her condition. #Diet: Regular diet #DVT prophylaxis: Alps #CODE STATUS: Full code Problem List: 1. Alcohol withdrawal 2. Transaminitis 3. Thrombocytopenia Pain Ratin Pain Location: - Pain Goal: Pain 4 or less Pain Plan: prn Tomorrow's Labs & Rationales: none, as the patient is being discharged today.
[2016-10-08 08:31] VITALS: BP 118/88
--- NOTE | 2016-10-08 08:32 | Patient Discharge Instructions ---
Discharge Instructions General Discharge Information You were seen/treated for: Alcohol detoxification Special Instructions: Please visit the IOP as planned after the discharge, ideally within seven days. Please visit your PCP within ten days of your sidcharge. You need to follow up on your liver function as well, it is still no within normal range. Please return to emergency department if symptoms worsen. Diet Continue normal diet: Yes Recommended Diet: Heart Healthy Activity Full Activity/No Limits: Yes Acute Coronary Syndrome Inclusion Criteria At DC or during hospital stay patient has or had the following: ACS DIAGNOSIS No Discharge Core Measures Meds if any: Prescribed or Continued at Discharge Meds if any: NOT Prescribed or Continued at Discharge Congestive Heart Failure Inclusion Criteria At DC or during hospital stay patient has or had the following: CHF DIAGNOSIS No Discharge Core Measures Meds if any: Prescribed or Continued at Discharge Meds if any: NOT Prescribed or Continued at Discharge Cerebrovascular accident Inclusion Criteria At DC or during hospital stay patient has or had the following: CVA/TIA Diagnosis No Discharge Core Measures Meds if any: Prescribed or Continued at Discharge Meds if any: NOT Prescribed or Continued at Discharge Venous thromboembolism Inclusion Criteria VTE Diagnosis No VTE Type NONE VTE Confirmed by (Test) NONE Discharge Core Measures - Per Current guidelines, there needs to be overlap - treatment for the first 5 days of Warfarin therapy. - If discharged on Warfarin prior to 5 days of - overlap therapy, the patient will need to be - assessed for post discharge needs including - *Post discharge parental anticoagulation - *Warfarin and/or parental anticoagulation education - *Follow up date to check INR post discharge At least 5 days overlap therapy as Inpatient No Meds if any: Prescribed or Continued at Discharge Note: Overlap Therapy is Warfarin and Anticoagulant Meds if any: NOT Prescribed or Continued at Discharge
[2016-10-08] MEDS ORDERED: ONE DAILY MULT1 EAC2 PO (08:58)
[2016-10-08] MEDS ORDERED: FOLIC ACID1 M1 PO (08:58)
[2016-10-08] MEDS ORDERED: VITAMIN B-1100 MG PO (08:58)
--- NOTE | 2016-10-08 15:18 | NUR ---
Late Entry: Aware of patients discharge this morning. Addie was picked up by a sober friend and transported to [facility] in [place], [place] Addie lives in [place], and has been receiving counselling from the parent organization of [facility].
--- NOTE | 2016-11-02 18:01 | Discharge Summary ---
Visit Information Visit Dates Admission Date: 10/04/16 Discharge Date: 10/08/16 Hospital Course Course Attending Physician: MURALI GARCIA MD Primary Care Physician: HOMERO RAYO PA-C Hospital Course: Ms Meyer is a 36-year-old female who presented to the emergency department requesting alcohol detoxification voluntarily. She has a long-standing history of alcohol abuse for about 20 years, and has tried alcohol detoxification multiple times in 2007 and again in 2013. She was sober for 18 months after that, and was following [facility] at [facility] according to the patient herself. Her last drink was about 12 ounces of vodka from the night prior to admission and again "a little bit" prior to presenting to the emergency department at 3 PM. In the emergency department, her blood pressure was 162/100, pulse 1:30, temperature 90.9, respiration 28, pulse oximetry 96% on room air. Laboratory values: Thrombocytopenia with platelet 128, WBC 4.4, hemoglobin 15.2, hematocrit 44.5, sodium 139, potassium 3.7, BUN 8, creatinine 0.7, glucose 103, AST 934, ALT 428, ALP 185, total protein 8.4, albumin 4.9. Urine toxicology was significant for positive alcohol level of 135, positive amphetamine screening 1366, and negative screen for benzodiazepines, phencyclidine, cannabis, barbiturate, methadone, opiates. EKG showed sinus tachycardia with rate of 150, no ST-T changes. She was admitted to the general medical floor for the management of following issues: #Alcohol detoxification Patient was placed on CIWA protocol, with scheduled lorazepam and also as needed lorazepam in her regimen. IV fluids, multivitamin, folate, thiamine, banana bag was added to her regimen. Social work consult was placed. Patient improved gradually with her CIWA score being 0 later on and was discharged. She was to go to a short-term rehabilitation facility, but her discharge disposition was changed to home or self care later on. #Transaminitis Patient had right upper quadrant pain worsened with consumption of alcohol, elevated LFTs as mentioned above and right upper quadrant tenderness with Pearson 's sign positive. Right upper quadrant ultrasound showed mild hepatomegaly with diffusely increased echogenicity consistent with hepatic steatosis (10/05/2016). Viral hepatitis panel was normal, acetaminophen level was normal as well. #Thrombocytopenia Patient's platelet level was 128, she was not bleeding actively, but had some bruises over both lower extremities. She was explained that she needs to follow -up with her primary care physician for the issue of thrombocytopenia and monitor her reflux level. She was provided help finding a primary care physician for herself. #She was placed on regular diet. #DVT prophylaxis was provided mechanically by [facility], as she had thrombocytopenia. #She holds a full CODE STATUS. Complications: None Allergies: Coded Allergies: No Known Allergies (10/04/16) Significant Procedures: SERVICE DATE: 10/05/16- EXAM TYPE: US - US-LIMITED ABDOMEN EXAMINATION: US ABDOMEN LIMITED CLINICAL INFORMATION: Abdominal pain. Transaminitis.. COMPARISON: None TECHNIQUE: Real-time imaging of the right upper quadrant abdominal viscera. FINDINGS: PANCREAS: The tail is obscured by right bowel gas. Is less portions are unremarkable. LIVER: The liver is mildly enlarged. There is diffusely increased echogenicity of the liver consistent with hepatic steatosis. No focal parenchymal lesion is demonstrated. There is no intrahepatic ductal dilatation. GALLBLADDER: Normal. The gallbladder is physiologically distended without evidence of stones, sludge, polyps, wall thickening or pericholecystic fluid. COMMON BILE DUCT: Normal in caliber measuring 0.4 cm in diameter. RIGHT KIDNEY: Normal. No hydronephrosis. No renal calculi or focal parenchymal lesions. The kidney measures 11.2 cm in maximum dimension. FREE FLUID: None. IMPRESSION: Mild hepatomegaly with diffusely increased echogenicity consistent with hepatic steatosis. DICTATED BY: SASCHA FERNANDEZ MD DATE/TIME DICTATED:10/05/16958 SOCIAL WORK PROFESSOR:JUAN M DATE/TIME TRANSCRIBED:10/05/16958 Pertinent Lab Results: Laboratory Tests 10/04/16 2015: Urine Opiates Screen < 100.00, Methadone Screen < 40, Barbiturate Screen < 60, Ur Phencyclidine Scrn < 6.00, Amphetamines Screen 1366 H, U Benzodiazepines Scrn < 85, Urine Cocaine Screen < 50, Urine Cannabis Screen < 5.00, Urine Color YEL, Urine Clarity CLEAR, Urine pH 7.0, Ur Specific [place] 1.020, Urine Protein 30 H, Urine Ketones 15 H, Urine Nitrite NEG, Urine Bilirubin NEG@ICTO, Urine Urobilinogen 2.0 H, Ur Leukocyte Esterase NEG, Ur Microscopic SEDIMENT EXAMINED , Urine RBC FEW H, Urine WBC RARE, Ur Epithelial Cells MANY H, Urine Mucus MANY H, Urine Hemoglobin TRACE-INTACT, Urine Glucose NEG 10/04/16 1618: Anion Gap 20 H, Estimated GFR > 60, BUN/Creatinine Ratio 11.4, Glucose 103 H, Calcium 9.5, Phosphorus 3.4, Magnesium 1.7, Total Bilirubin 1.3, AST 934 H, ALT 428 H, Alkaline Phosphatase 185 H, Total Protein 8.4 H, Albumin 4.9, Globulin 3.5, Albumin/Globulin Ratio 1.4, TSH 1.320, Total Beta HCG NEGATIVE, CBC w Diff NO MAN DIFF REQ, RBC 5.04, MCV 88.2, MCH 30.2, RDW 14.7 H, MPV 9.9, Gran % 78.0 H, Lymphocytes % 18.0 L, Monocytes % 2.3, Eosinophils % 0.8, Basophils % 0.9, Absolute Granulocytes 3.4, Absolute Lymphocytes 0.8 L, Absolute Monocytes 0.1 L, Absolute Eosinophils 0, Absolute Basophils 0, PUBS MCHC 34.2, Serum Alcohol 135.0 10/06/16 0617: Anion Gap 12, Estimated GFR > 60, BUN/Creatinine Ratio 8.3, Magnesium 2.0, CBC w Diff NO MAN DIFF REQ, RBC 4.37, MCV 89.5, MCH 30.6, RDW 14.7 H, MPV 11.9 H, Gran % 49.6, Lymphocytes % 40.5, Monocytes % 4.6, Eosinophils % 4.5, Basophils % 0.8, Absolute Granulocytes 1.6, Absolute Lymphocytes 1.3, Absolute Monocytes 0.1 L, Absolute Eosinophils 0.1, Absolute Basophils 0, PUBS MCHC 34.2 10/07/16 0630: Anion Gap 15, Estimated GFR > 60, BUN/Creatinine Ratio 5.0 L, Total Bilirubin 2.3 H, Direct Bilirubin 2.0 H, AST 331 H, ALT 270 H, Alkaline Phosphatase 152 H, Total Protein 6.3, Albumin 3.5, CBC w Diff NO MAN DIFF REQ, RBC 4.44, MCV 90.2, MCH 30.6, RDW 15.1 H, MPV 11.4 H, Gran % 48.7, Lymphocytes % 38.0, Monocytes % 6.3, Eosinophils % 6.0 H, Basophils % 1.0, Absolute Granulocytes 1.7, Absolute Lymphocytes 1.3, Absolute Monocytes 0.2, Absolute Eosinophils 0.2, Absolute Basophils 0, PUBS MCHC 34.0 10/08/16 0637: Total Bilirubin 1.6 H, Direct Bilirubin 1.1 H, AST 178 H, ALT 202 H, Alkaline Phosphatase 134 H, Total Protein 6.4, Albumin 3.5 Disposition Summary Disposition Principal Diagnosis: Alcohol detoxification Additional Diagnosis: Thrombocytopenia Anxiety Depression Polysubstance abuse Discharge Disposition: home or self care Discharge Instructions General Discharge Information Code Status: Full Code Patient's Diet: Regular diet Patient's Activity: As tolerated Follow-Up Instructions/Appts: Please visit the IOP as planned after the discharge, ideally within seven days. Please visit your PCP within ten days of your sidcharge. You need to follow up on your liver function as well, it is still no within normal range. Please return to emergency department if symptoms worsen. Medications at Discharge Discharge Medications: Start taking the following new medications: Folic Acid (Folic Acid) 1 MG TABLET 1 Milligram ORAL DAILY Qty = 30 No Refills Comments: Last Taken: 10/08/16 Time: 0900AM Thiamine HCl (Vitamin B-1) 100 MG TABLET 100 Milligram ORAL DAILY Qty = 30 No Refills Comments: Last Taken:10/08/16 Time: 0900AM Multivitamin (One Daily Multivitamin) 1 EACH TABLET 1 Tablet ORAL DAILY Qty = 30 No Refills Comments: Last Taken: 10/08/16 Time: 0900AM Copies To: GIRMA CHRISTIANSON,HOMERO [place]
== END 2016-10-08 11:11 | DRG 897 ==
LOC: ERH 15:55 → 2NB 19:36 → ERHI 19:36 → 2NB 22:32
PROVIDERS: Emergency Medicine; Internal Medicine; Internal Medicine Hematology & Oncology; Radiology Diagnostic Radiology; ADMIT Student in an Organized Health Care Education/Training Program
DX: F10.239 Alcohol dependence with withdrawal, unspecified (principal); E87.2 Acidosis; D69.6 Thrombocytopenia, unspecified; K70.10 Alcoholic hepatitis without ascites; Y90.6 Blood alcohol level of 120-199 mg/100 ml; F17.210 Nicotine dependence, cigarettes, uncomplicated
CPT/HCPCS: 2NBSP; 36415; 80307; 81001; 82436; 93005; 93010; 96361; 96374; G0480; J1650; J3490; J7060